=== PATIENT | female | born 1975 | race Caucasian/White ===

== ENCOUNTER 2018-02-16 18:33 | Inpatient (IN) | payer OTHER ==
[2018-02-16] MEDS ORDERED: PENICILLIN G POT 5 MU/100 ML BAG IV ONE (20:25)
[2018-02-16] MEDS ORDERED: Ringers Lactate 1,000 ML IV PRN (20:35)
[2018-02-16] MEDS ORDERED: PENICILLIN 5 MU in NA CHLORIDE 0.9% 100 ML IV ONE (20:35)
[2018-02-16] MEDS ORDERED: BUTORPHANOL 1 MG/ML INJ IV PRN (20:35)
[2018-02-16] MEDS ORDERED: PROMETHAZINE 25 MG/ML VIAL IV PRN (20:35)
[2018-02-16] MEDS ORDERED: METHYLERGONOVINE 0.2MG/ML AMP IM PRN (20:35)
[2018-02-16] MEDS ORDERED: CARBOPROST TROME 250 MCG/ML IM PRN (20:35)
[2018-02-16] MEDS ORDERED: OXYTOCIN/LR 20 UNIT/1,000 ML BAG IV SCH (21:00)
[2018-02-16] MEDS ORDERED: Ringers Lactate 1,000 ML IV SCH (21:00)
[2018-02-16 21:11] LABS: RPR Titer ND
[2018-02-16 21:15] LABS: Absolute Lymphocytes (CBC) 1.9 K/uL (0.7-4.9); Absolute Monocytes 0.8 K/uL (0.1-1.3); Absolute Neutrophil 8.1 K/uL (1.8-8.0); Basophils % 0.5 % (0-1.3); Eosinophils % 0.7 % (0-4.4); Hematocrit 40.1 % (36.0-45.0); Lymphocytes % 17.2 % (15.3-44.8); MCH 29.3 pg (27.0-35.0); MCV 87.5 fL (80-100); MPV 10.5 fL (7.6-11.3); RBC Red Blood Cell Count 4.58 M/uL (3.86-4.86)
[2018-02-16 22:10] LABS: RPR (Rapid Plasma Reagin) NON-REACT (NON-REACT)
[2018-02-16 22:23] VITALS: BMI 26.2
--- NOTE | 2018-02-16 23:16 | P.OBGYNHP ---
Certification for Inpatient Patient admitted to: Inpatient With expected LOS: <2 Midnights Patient will require the following post-hospital care: None Practitioner: I am a practitioner with admitting privileges, knowledge of patient current condition, hospital course, and medical plan of care. Services: Services provided to patient in accordance with Admission requirements found in Title 42 Section 412.3 of the Code of Federal Regulations Patient History Date of Service: 03/10/18 Reason for admission: LABOR History of Present Illness: Patient is a 42 y/o who presents at 38 weeks gestation in labor. Patient has been having contractions since the morning and the pain has worsened greatly. She denies leakage of fluid. She reports good movements. Her care has been complicated by Advanced maternal age. She has been seeing an MFM as well. She also had an episode of vaginal bleeding and some mild cervical dilation at which time she was treated with terbutiline and was given one course of steroids. GBS is positive. See record for further details. Allergies No Known Allergies Allergy (Unverified 01/24/18 14:57) Home Medications: Pnv73/Iron,Carb&Glu/FA/Dss/Dha [Citranatal Assure Combo Pack] 1 tab PO DAILY - Past Medical/Surgical History Diabetic: No -: vaginal 1997 -: removal of kidney stonge 2008 - Family History Father -: Heart disease, Hypertension - Social History Smoking Status: Never smoker Alcohol use: No CD- Drugs: No Caffeine use: No Place of Residence: Home Review of Systems 10-point ROS is otherwise unremarkable Physical Examination - Vital Signs Temperature: 97.5 F Blood Pressure: 116/75 Pulse: 77 - General General: Alert and in no apparent distress HEENT: Atraumatic Neck: Supple Respiratory: Normal air movement Cardiovascular: No edema, Normal pulses Breasts: Normal configuration Gastrointestinal: Other (Gravid) Musculoskeletal: No clubbing Integumentary: No rashes, No breakdown Neurological: Normal gait - Female Pelvic External genitalia: Normal Vagina: Normal Cervix: Dilation (2), Effacement (50), station (-2) Uterus: Gravid Adnexa: Unable to evaluate - Obstetrics heart rate tracing: Category 2 Contractions: Frequency (every 2-4 minutes) Amniotic membrane: Intact Laboratory Data (last 24 hrs) 02/16/18 20:15: WBC 10.9, Hgb 13.4, Hct 40.1, Plt Count 171 Assessment and Plan - Plan 42 y/o at 38 weeks gestation in labor. Admit for management of labor. Penicillin for GBS prophylaxis. Epidural placement at patient's request. Antiticpate vaginal . Discharge Plan: Home Plan to discharge in: 48 Hours - Advance Directives Does patient have a Living Will: No Does patient have a Durable POA for Healthcare: No
[2018-02-17] MEDS ORDERED: PENICILLIN G POT 5 MU/VIAL IV ONE (00:20)
[2018-02-17] MEDS ORDERED: NA CHLORIDE 0.9% 100 ML IV ONE ×2 (00:21→04:25)
[2018-02-17] MEDS ORDERED: PENICILLIN 2.5 MU in NA CHLORIDE 0.9% 100 ML IV SCH (01:00)
[2018-02-17] MEDS ORDERED: LIDOCAINE 1% 20 ML MDV ONE (07:11)
[2018-02-17] MEDS ORDERED: IBUPROFEN 200 MG TAB PO PRN (08:36)
[2018-02-17] MEDS ORDERED: ONDANSETRON 4 MG (ODT) TAB PO PRN (08:36)
[2018-02-17] MEDS ORDERED: ACETAMINOPHEN 500 MG TAB PO PRN (08:36)
[2018-02-17] MEDS ORDERED: Oxycodone HCl/Acetaminophen 1 TAB TAB PO PRN (08:36)
[2018-02-17] MEDS ORDERED: DOCUSATE NA/SENNA CONC 1 TAB PO PRN (08:36)
[2018-02-17] MEDS ORDERED: BISACODYL 10 MG RECTAL SUPP RECT PRN (08:36)
[2018-02-17] MEDS ORDERED: METHYLERGONOVINE 0.2 MG TAB PO PRN (08:36)
--- NOTE | 2018-02-17 08:45 | P.OP ---
Date of Service: 02/17/18 Findings and Operative Technique Patient delivered a viable female in cephalic presentation on 02/16/18 at 07:03 AM and was delivered by labor and delivery nurse. APGARS were 8/9 and weight was found to be 5 lb 10 ounces. Once I arrived placenta was delivered with gentle traction at 07:06am. Attention was then turned to a midline laceration which was repaired with a 2.0 vicryl and was noted to be a 1st degree. First stage of labor was 10 hours. Second stage of labor was 1 minute. Both mom and baby are doing well.
[2018-02-17] MEDS ORDERED: Ringers Lactate 1,000 ML IV ONE (19:42)
[2018-02-18 06:21] LABS: Absolute Lymphocytes (CBC) 2.3 K/uL (0.7-4.9); Absolute Monocytes 0.7 K/uL (0.1-1.3); Absolute Neutrophil 5.8 K/uL (1.8-8.0); Basophils % 0.7 % (0-1.3); Eosinophils % 1.7 % (0-4.4); Hematocrit 38.1 % (36.0-45.0); Lymphocytes % 25.7 % (15.3-44.8); MCV 88.6 fL (80-100); MPV 10.1 fL (7.6-11.3)
[2018-02-18 11:57] VITALS: BP 116/75; TEMP 97.5
[2018-02-21 04:45] LABS: HBsAG Nonreactive (Nonreactive)
== END 2018-02-18 10:50 | disposition home or self-care (01) | DRG 775 ==
LOC: L&D 18:33 → 2ND-WC 19:45
PROVIDERS: ADMIT Student in an Organized Health Care Education/Training Program; ATTEND Student in an Organized Health Care Education/Training Program
PROC: 10907ZC Drainage of Amniotic Fluid, Therapeutic from Products of Conception, Via Natural or Artificial Opening (ICD-10-PCS; 2018-02-16)
PROC: 10E0XZZ Delivery of Products of Conception, External Approach (ICD-10-PCS; principal; 2018-02-17)
PROC: 0HQ9XZZ Repair Perineum Skin, External Approach (ICD-10-PCS; 2018-02-17)
DX: O70.0 First degree perineal laceration during delivery (principal); O99.824 Streptococcus B carrier state complicating childbirth; Z3A.38 38 weeks gestation of pregnancy; Z37.0 Single live birth
CPT/HCPCS: 36415; 85025; 86592; 86901; 87340; 88307; 99218; J0595; J2550; J2590